=== PATIENT | female | born 2000 | race Caucasian/White ===

== ENCOUNTER 2020-08-11 17:28 | Outpatient (CLI) | payer OTHER, SELFPAY ==
[2020-08-11 17:43] LABS: Basophils Absolute Auto 0.1 K/mm3 (0.0-0.1); Basophils Percent Auto 0.7 % (0.2-1.2); Eosinophils Absolute Auto 0.3 K/mm3 (0-0.3); Eosinophils Percent Auto 3.3 % (0-4.4); Hematocrit 40.8 % (37.0-47.0); Hemoglobin 14.1 g/dL (12.0-15.0); Immature Granulocyte Absolute 0.01 K/mm3 (0.00-0.031); Immature Granulocyte Percent A 0.1 % (0-0.5); Lymphocytes Percent Auto 33.3 % (18.3-44.2); Mean Corpuscular HGB Conc 34.6 g/dl (32-36); Mean Corpuscular Hemoglobin 30.9 pg (26-34); Mean Corpuscular Volume 89.3 fl (80-100); Mean Platelet Volume 9.7 fl (7.4-10.4); Monocytes Absolute Auto 0.5 K/mm3 (0.1-0.6); Monocytes Percent Auto 6.5 % (2.6-8.5); Neutrophils Absolute Auto 4.2 K/mm3 (1.3-6.7); Neutrophils Percent Auto 56.1 % (45.5-73.1); Platelet Count Result 312 k/mm3 (150-375); Red Blood Count 4.57 M/mm3 (4.2-5.4); Red Cell Distribution Width 12.1 % (11.5-14.5); White Blood Count 7.5 K/mm3 (4.5-10.0)
[2020-08-11 17:56] LABS: Alanine Aminotransferase 14 U/L (4-35); Albumin Level 4.4 g/dL (3.5-5.1); Alkaline Phosphatase 47 U/L (38-126); Anion Gap 9 mmol/L (8-16); Aspartate Amino Transferase 25 U/L (14-36); Bilirubin,Total 0.3 mg/dL (0.2-1.3); Blood Urea Nitrogen 18 mg/dL (7-17); Calcium 9.4 mg/dL (8.4-10.2); Carbon Dioxide 26 mmol/L (22-30); Chloride 105 mmol/L (98-107); Cholesterol 178 mg/dL (0-200); Estimated Glomerular Filt Rate > 60; Glucose 88 mg/dL (65-105); HDL Direct 101 mg/dL; Magnesium 2.1 mg/dL (1.6-2.3); Potassium 3.7 mmol/L (3.4-5.0); Sodium 140 mmol/L (137-145); Triglycerides 121 mg/dL (<150)
[2020-08-11 18:07] LABS: LDL Cholesterol Direct 66 mg/dL
== END 2020-08-11 17:29 | disposition home or self-care (01) ==
LOC: ANHLAB 17:30
PROVIDERS: PCP Internal Medicine; Visit Provider Nurse Practitioner
DX: I49.9 Cardiac arrhythmia, unspecified (principal)
CPT/HCPCS: 36415; 80053; 80061; 83735; 84443; 85025

== ENCOUNTER 2020-10-22 09:58 | Outpatient (CLI) | payer OTHER, SELFPAY ==
--- NOTE | 2020-10-27 12:39 | WPDHOLTEREM ---
Holter/Event Monitor Holter/Event Monitor Date of procedure: 10/22/20 Procedure Type: 48 hour holter monitor Indications: Cardiac arrhythmia Conclusion: 1. 48 hour holter monitor on 10/22/20. 2. Underlying rhythm is sinus rhythm. HR range 50-143 bpm; average HR 87 bpm. 3. There are 2 premature supraventricular complexes. No supraventricular tachycardia. 4. There are 77 premature ventricular complexes. No ventricular tachycardia. 5. No sinoatrial or atrioventricular blocks. No significant pauses greater than 2 seconds. 6. No symptoms available for correlation.
== END 2020-10-22 09:59 | disposition home or self-care (01) ==
PROVIDERS: PCP Internal Medicine; Visit Provider Nurse Practitioner
DX: I49.9 Cardiac arrhythmia, unspecified (principal)
CPT/HCPCS: 93225; 93226

== ENCOUNTER 2022-06-20 07:09 | Outpatient (CLI) | payer OTHER, SELFPAY ==
[2022-06-20 08:52] LABS: Influenza A QL RT-PCR Negative (Negative); Influenza B QL RT-PCR Negative (Negative); RSV RNA, RT-PCR Negative (Negative); SARS-CoV-2 RNA PCR Negative
== END 2022-06-20 07:10 | disposition home or self-care (01) ==
LOC: ANHLAB 07:11
PROVIDERS: PCP Internal Medicine; Visit Provider Internal Medicine
DX: R68.89 Other general symptoms and signs (principal); Z20.822 Contact with and (suspected) exposure to COVID-19
CPT/HCPCS: 87637

== ENCOUNTER 2023-04-13 12:33 | Outpatient (CLI) | payer OTHER, SELFPAY ==
[2023-04-13 13:38] LABS: Kit Draw Collected
== END 2023-04-13 12:34 | disposition home or self-care (01) ==
LOC: ANHGOSHLAB 12:34
PROVIDERS: PCP Internal Medicine; Visit Provider Internal Medicine
DX: E55.9 Vitamin D deficiency, unspecified (principal); R53.83 Other fatigue; Z79.899 Other long term (current) drug therapy
CPT/HCPCS: 36415

== ENCOUNTER 2024-07-28 13:25 | Outpatient (CLI) | payer OTHER, SELFPAY ==
--- OUTSIDE RECORDS SUMMARY | 2024-07-28 13:39 | XMS_ITS | Encounter Summary ---
Author Organization [facility] Address [address] [place] [address] Phone Care Team Providers Care Historic Interpreter Name Role Phone Dewey Luna DO Primary Care Provider [phone] Dewey Luna DO Unavailable [phone] Forest Pruitt MD Unavailable [phone] Encounter Details Date Type Department Care Team (Late st Contact Info) Description 07/13/2017 Orders Only [facility] ProviderZhang MD [address] [id number] Social History Tobacco Use Types Packs/Day Years Used Date Smoking Tobacco: Never Smokeless Tobacco: Never Comments Unknown Sex and Gender Information Value Date Recorded Sex Assigned at Not on file Legal Sex Female 11:29 PM CHANGE CONTROL MANAGER Gender Identity Not on file Sexual Orientation Not on file documented as of this encounter Plan of Treatment Not on file documented as of this encounter Procedures Procedure Name Priority Date/Time Associated Diagnosis Comments DISCHARGE LABORATORY CUMULATIVE REPORT 07/13/2017 12:00 AM CHANGE CONTROL MANAGER documented in this encounter Results * DISCHARGE LABORATORY CUMULATIVE REPORT (07/13/2017 12:00 AM CHANGE CONTROL MANAGER) Narrative 07/13/2017 12:00 AM CHANGE CONTROL MANAGER Ordered by an unspecified provider. us Historical Provider LAB BLOOD ORDERABLES Nataly l Result documented in this encounter Visit Diagnoses Not on filedocumented in this encounter Care Teams Historic Interpreter Relationship Specialty Start Date End Date Dewey Luna DO PCP - General Internal Medicine 05/31/17 Dewey Luna DO 05/31/17 Forest Pruitt MD [address] [place] [address] 04/30/17 documented as of this encounter
--- OUTSIDE RECORDS SUMMARY | 2024-07-28 13:39 | XMS_ITS | Clinical Summary ---
Author Organization [facility] [address] Address [address] [place] [address] Care Team Providers Care Door To Door Salesman Name Role Phone Dewey Luna DO Primary Care Provider [phone] Dewey Luna DO Unavailable [phone] Forest Pruitt MD Unavailable [phone] Allergies No known active allergies Medications Lo Loestrin Fe 1 mg-10 mcg (24)/10 mcg (2) tablet per tablet Take 1 tablet by mouth daily 84 tablet 3 02/14/2024 Active norethindrone-e. estradioL-iron (LO LOESTRIN FE) 1 mg-10 mcg (24)/10 mcg (2) tablet per tablet Take 1 tablet by mouth daily 28 tablet 3 05/26/2024 Active Active Problems Problem Noted Date Diagnosed Date Viral URI 05/31/2017 Assessment & Plan (05/31/2017 7:42 PM CAMPUS ADMINISTRATIVE ASSISTANT): You have an upper respiratory infection which is viral. You will need to take OTC medications Mucinex for chest congestion Sudafed for nasal/head congestion Zyrtec for nasal drainage Dayquil/Delysm form cough Tylenol/Motrin for fever Drink plenty of fluids to stay hydrated Get plenty of rest If your symptoms worsen or you experience shortness of breath, RTC or go to ER. If you have been prescribed any medications, take them as directed Arthralgia of hip 05/01/2017 Irregular menses 01/17/2017 Overview (01/17/2017): OCPs Encounters Date Type Department Care Team Description 06/05/2024 Telephone [facility] [address] [facility] [address] [place] [address] Arely Klein DYE RANGE TENDER PA for Lo Loestrin 05/26/2024 Telephone [facility] [address] [facility] [address] [facility] [address] [place] [address] Marci Gan MA from Last 3 Months Immunizations Name Administration Dates Next Due DTaP 07/06/2004, 0,1999,05/13 HPV, Quadrivalent 08/05/2012,03/22/2012,01/08/20 12 Hep B, Adolescent or Pediatric 09/19/2000,1999,1999 Hib (HbOC) 06/01/2000, 0,1999,05/13 Influenza, Split 03/22/2012 MMR 07/06/2004,03/28/2000 Meningococcal MCV4P (Menactra) 01/10/2016 Meningococcal Polysaccharide (Menomune) 01/04/2011 OPV 07/06/2004,1999,1999 Pneumococcal Conjugate 7-Valent 06/01/2000 Tdap 01/04/2011 Varicella 01/08/2014 Family History Medical History Relation Name Comments Breast cancer Paternal Grandmother Relation Name Status Comments Paternal Grandmother Social History Tobacco Use Types Packs/Day Years Used Date Smoking Tobacco: Never Smokeless Tobacco: Never Tobacco Cessation:Counseling Given: Not Answered Alcohol Use Standard Drinks/Week Comments No 0 (1 standard drink = 0.6 oz pur e alcohol) Humiliation, Afraid, Rape, and Kick questionnair e Answer Date Recorded Within the last year, have y ou been afraid of your partner or ex-partner? No 12/13/2022 Within the last year, have y ou been humiliated or emotionally abused in other ways by your partner or ex-partner? No Within the last year, have y ou been kicked, hit, slapped, or otherwise physically hurt by your partner or ex-partner? No 12/13/2022 Within the last year, have y ou been raped or forced to have any kind of sexual activity by your partner or ex-partner? No 12/13/2022 PHQ-2 Answer Date Recorded PHQ-2 Total Score (If total score is 3 or more points, staff should administer the PHQ-9) 0 12/13/2022 Personal Safety Answer Date Recorded Getting School Help Needed Not on file 08/31 Comments No Sex and Gender Information Value Date Recorded Sex Assigned at Not on file Legal Sex Female 11:29 PM CAMPUS ADMINISTRATIVE ASSISTANT Gender Identity Not on file Sexual Orientation Not on file Obstetrics History Para Term AB IAB SAB Ectopic Multiple Livin g Live Births 0 0 0 0 0 0 0 0 0 0 0 Last Filed Vital Signs Vital Sign Reading Time Taken Comments Blood Pressure 140/78 02/14/2024 1:42 PM CDT Pulse 77 12/13/2022 3:08 PM CDT Temperature 37 C (98.6 F) 07/13/2017 12:21 PM CAMPUS ADMINISTRATIVE ASSISTANT Respiratory Rate 18 07/13/2017 12:21 PM CAMPUS ADMINISTRATIVE ASSISTANT Oxygen Saturation 99% 07/13/2017 12:21 PM CAMPUS ADMINISTRATIVE ASSISTANT Inhaled Oxygen Concentration - - Weight 59.4 kg (131 lb) 02/14/2024 1:42 PM CDT Height 154.9 cm (5' 1 ) 02/14/2024 1:42 PM CDT Body Mass Index 24.75 02/14/2024 1:42 PM CDT Plan of Treatment Health Maintenance Due Date Last Done Comments Hepatitis C Screening 1999 Varicella Vaccines (2 of 2 - 13+ 2-dose series) 02/05/2014 01/08/2014 DTaP/Tdap/Td Vaccine (6 - Td or Tdap) 01/04/2021 01/04/2011, 07/06/2004, 1999, Additional history exists Depression Screening 12/14/2023 12/13/2022, 12/06/2021, 12/02/2020, Additional history exists Covid-19 Vaccine ( season) 2024 03/07/2021, 02/14/2021 Influenza Vaccine (#1) 2024 03/22/2012 Cervical Cancer Screening 02/13/20252023, 12/13/2022, 12/06/2021, Additional history exists Regular Well Visit/Exam 18-64 02/13/2025 02/14/2024, 12/13/2022, 12/06/2021, Additional history exists Pneumococcal vaccine <65 Aged Out 06/01/2000 No longer eligible based on patient's age to complete this topic HPV Vaccines Completed 08/05/2012, 10/2011, 01/08/2012 Procedures Procedure Name Priority Date/Time Associated Diagnosis Comments PAP, REFLEX HPV Routine 02/14/2024 1:58 PM CDT Well woman exam from Last 3 Months or Most Recently Relevant to Health Maintenance Results * Pap, reflex HPV (02/14/2024 1:58 PM CDT) CLINICAL INFORMATION: Sujatha Bledsoe Comment:Routine exam LMP Sujatha Bledsoe Comment:NO CYCLES ON OCP'S Previous Pap Sujatha Bledsoe Comment:NONE GIVEN Prev. Bx Sujatha Bledsoe Comment:NONE GIVEN SOURCE: Sujatha Bledsoe Comment:Cervix, Endocervix Pap, specimen adequacy Sujatha Bledsoe Comment: Satisfactory for evaluation. Endocervical/transformation zone component present. HPV interp Sujatha Bledsoe Comment: Cytology Results: Negative for intraepithelial lesion or malignancy. COMMENTS Sujatha Bledsoe Comment: This Pap test has been evaluated with computer assisted technology. Sightseeing Guide Gamal Pal Comment: LMT, CT(ASCP) CT screening location: [facility] [place] [address] [place], [place] [address] Comment Sujatha Bledsoe Comment: EXPLANATORY NOTE: The Pap is a screening test for cervical cancer. It is not a diagnostic test and is subject to false negative and false positive results. It is most reliable when a satisfactory sample, regularly obtained, is submitted with relevant clinical findings and history, and when the Pap result is evaluated along with historic and current clinical information. Thin prep 02/14/2024 1:58 PM CDT 02/15/2024 6:22 AM CDT Arely Klein DYE RANGE TENDER LAB CYTOLOGY ORDERABLES [facility] [address] [place] [address] from Last 3 Months or Most Recently Relevant to Health Maintenance Insurance [facility] [facility] CHOICE PLUS [place] CHOICE CIGNA [facility] CHOICE PLUS Care Teams Door To Door Salesman Relationship Specialty Start Date End Date Dewey Luna DO PCP - General Internal Medicine 05/31/17 Dewey Luna DO 05/31/17 Forest Pruitt MD [address] [place] [address] 04/30/17
--- OUTSIDE RECORDS SUMMARY | 2024-07-28 13:39 | XMS_ITS | Referral Summary ---
Author Organization [facility] Address [address] [facility] [place] [address] Care Team Providers Care Wood Shop Teacher Name Role Phone Unavailable Primary Care Provider Unavailabl e Source Comments [facility],non-owned Affiliates and Associated Physician Practices is amultiple site organization consisting of ambulatory clinics and hospital sitesin [place], [place], [place] and [place]. This disclosure is being madepursuant to the Care Everywhere program and may not contain all information available regarding this patient. Last updated 18.[facility] Allergies No known active allergies Medications * Be aware that medications may not be up to date on this document. Alwaysverify current medications with the patient. Medication Sig Dispensed Refills Start Date End Date Status Multiple Vitamin (MULTIVITAMINS PO) Active Norethin-Eth Estrad-Fe Biphas (LO LOESTRIN FE PO) Active Social History Tobacco Use Types Packs/Day Years Used Date Smoking Tobacco: Never Smokeless Tobacco: Never Alcohol Use Standard Drinks/Week Comments No 0 (1 standard drink = 0.6 oz pur e alcohol) Sex and Gender Information Value Date Recorded Sex Assigned at Not on file Gender Identity Not on file Sexual Orientation Not on file Last Filed Vital Signs Vital Sign Reading Time Taken Comments Blood Pressure 129/83 02/13/2018 3:48 PM CDT Pulse 74 02/13/2018 3:48 PM CDT Temperature 36.8 C (98.3 F) 02/13/2018 3:48 PM CDT Respiratory Rate 18 02/13/2018 3:48 PM CDT Oxygen Saturation 99% 02/13/2018 3:48 PM CDT Inhaled Oxygen Concentration - - Weight 54.4 kg (120 lb) 02/13/2018 3:48 PM CDT Height 154.9 cm (5' 1 ) 02/13/2018 3:48 PM CDT Body Mass Index 22.67 02/13/2018 3:48 PM CDT Plan of Treatment Not on file
--- OUTSIDE RECORDS SUMMARY | 2024-07-28 13:39 | XMS_ITS | Referral Summary ---
Author Organization [facility] [address] Address [address] [place] [address] Care Team Providers Care Resource Conservation Manager Name Role Phone Dewey Luna DO Primary Care Provider [phone] Dewey Luna DO Unavailable [phone] Forest Pruitt MD Unavailable [phone] Encounters Date Type Department Care Team Description 06/05/2024 Telephone [facility] [address] [place] [address] [address], [place] [address] Arely Klein NP PA for Lo Loestrin 05/26/2024 Telephone [facility] [address] [place] [address] [address], [place] [address] Marci Gan MA from Last 3 Months Allergies No known active allergies Medications Lo [...] 05/31/2017 Assessment & Plan (05/31/2017 7:42 PM LOSS CONTROL CONSULTANT): You have an upper respiratory infection which [...] 05/01/2017 Irregular menses 01/17/2017 Overview (01/17/2017): OCPs Immunizations Name Administration Dates Next Due DTaP 07/06/2004, 0,1999,05/13 HPV, Quadrivalent 08/05/2012,03/22/2012,01/08/20 12 Hep B, Adolescent or Pediatric 09/19/2000,1999,1999 Hib (HbOC) 06/01/2000, 0,1999,05/13 Influenza, Split 03/22/2012 MMR 07/06/2004,03/28/2000 Meningococcal MCV4P (Menactra) 01/10/2016 Meningococcal Polysaccharide (Menomune) 01/04/2011 OPV 07/06/2004,1999,1999 Pneumococcal Conjugate 7-Valent 06/01/2000 Tdap 01/04/2011 Varicella 01/08/2014 Social History Tobacco Use Types Packs/Day Years [...] on file Legal Sex Female 11:29 PM LOSS CONTROL CONSULTANT Gender Identity Not on file Sexual Orientation Not on file Last Filed Vital Signs Vital Sign Reading Time Taken Comments Blood Pressure 140/78 02/14/2024 1:42 PM CDT Pulse 77 12/13/2022 3:08 PM CDT Temperature 37 C (98.6 F) 07/13/2017 12:21 PM LOSS CONTROL CONSULTANT Respiratory Rate 18 07/13/2017 12:21 PM LOSS CONTROL CONSULTANT Oxygen Saturation 99% 07/13/2017 12:21 PM LOSS CONTROL CONSULTANT Inhaled Oxygen Concentration - - Weight 59.4 kg (131 lb) 02/14/2024 1:42 PM CDT Height 154.9 cm (5' 1 ) 02/14/2024 1:42 PM CDT Body Mass Index 24.75 02/14/2024 1:42 PM CDT Plan of Treatment Not on file Procedures Procedure Name Priority Date/Time Associated Diagnosis [...] has been evaluated with computer assisted technology. Architectural Associate Gamal Pal Comment: LMT, CT(ASCP) CT screening location: [place] [address] [address] [place] [address] Comment Sujatha Bledsoe Comment: EXPLANATORY NOTE: The [...] CDT 02/15/2024 6:22 AM CDT Arely Klein HAND BULLDOZER LAB CYTOLOGY ORDERABLES Fin al Result [facility] [address] [place] [phone] from Last 3 Months or Most Recently Relevant to Health Maintenance Insurance [employer] [facility] CHOICE PLUS ANTH ACCESS CHOICE CIGNA [facility] CHOICE PLUS Care Teams Resource Conservation Manager Relationship Specialty Start Date End Date Dewey Luna DO PCP - General Internal Medicine 05/31/17 Dewey Luna DO 05/31/17 Forest Pruitt MD [address] [place] [address] 04/30/17
--- OUTSIDE RECORDS SUMMARY | 2024-07-28 13:39 | XMS_ITS | Patient Health Summary ---
Author Organization [facility] Address [address] [facility] [place] [address] Care Team Providers Care Knocker Off Name Role Phone Unavailable Primary Care Provider Unavailabl e Note from [facility],non-owned Affiliates and Associated Physician Practices is amultiple site organization consisting of ambulatory clinics and hospital sitesin [place], [place], [place] and [place]. This disclosure is being madepursuant to the Care Everywhere program and may not contain all information available regarding this patient. Last updated 18.[facility] Allergies No known active allergies Medications * Be aware that medications may not be up to date on this document. Alwaysverify current medications with the patient. * Multiple Vitamin (MULTIVITAMINS PO) * Norethin-Eth Estrad-Fe Biphas (LO LOESTRIN FE PO) Social History Tobacco Use Types Packs/Day Years [...] Mass Index 22.67 02/13/2018 3:48 PM CDT Procedures * STREP A SCREEN - POINT OF CARE (AMB) STL(Performed 02/13/2018) Performed for Swollen lymph nodes Results * STREP A SCREEN - POINT OF CARE (AMB) STL (02/13/2018) Strep A Rapid POCT Negative Negative Strep A Internal Control Present Lot # [id number] Expiration Date 04/17/19 Throat ENTIRE THROAT (SURFACE REGION OF NECK) / Unknown 02/13/2018 Lauren Alonzo BRIDGE LEVERMAN-SAFETY ASSISTANT LAB - POINT OF CARE ORDERABLES
--- OUTSIDE RECORDS SUMMARY | 2024-07-28 13:39 | XMS_ITS | Clinical Summary ---
Author Organization [email or web address] Address [address] [facility] [place] [address] Care Team Providers Care General Machine Operator Name Role Phone Unavailable Primary Care Provider Unavailabl e Source Comments [email or web address],non-owned Affiliates and Associated Physician Practices is amultiple site organization consisting of ambulatory clinics and hospital sitesin [place], [place] and [place]. This disclosure is being madepursuant to the Care Everywhere program and may not contain all information available regarding this patient. Last updated 18.[email or web address] Allergies No known active allergies Medications * [...] 02/13/2018 3:48 PM CDT Plan of Treatment Health Maintenance Due Date Last Done Comments PAP SMEAR 1999 HIV SCREENING 2014 HPV VACCINE (1 - 3-dose series) 2014 CHLAMYDIA/GONORRHEA SCREENING 2015 HEPATITIS C SCREENING 03/08/2017 DTAP/TDAP/TD VACCINES (1 - Tdap) 2018 HEPATITIS B VACCINE (1 of 3 - 19+ 3-dose series) 2018 COVID-19 VACCINE ( - 2023-2 5 season) 2024 INFLUENZA VACCINE (#1) 2024 DEPRESSION SCREENING 06/18/2024 ZOSTER VACCINE (1 of 2) 2049 HIB VACCINE Aged Out No longer eligi ble based on patient's age to complete this topic MENINGOCOCCAL (Group B) VACCINE Aged Out No longer eligible based on patient's age to complete this topic MENINGOCOCCAL VACCINE Aged Out No isamar lissy eligible based on patient's age to complete this topic PNEUMOCOCCAL VACCINE Aged Out No long er eligible based on patient's age to complete this topic
== END 2024-07-28 13:26 | disposition home or self-care (01) ==
LOC: ANHGOSHLAB 13:28
PROVIDERS: PCP Internal Medicine; Visit Provider Internal Medicine
DX: Z92.29 Personal history of other drug therapy (principal)
CPT/HCPCS: 36415; 86480